=== PATIENT | female | born 2000 | race Two or more races ===

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

== ENCOUNTER 2018-03-16 19:29 | Emergency (ER) | payer OTHER ==
[2018-03-16] MEDS ORDERED: ACETAMINOPHEN 500 MG TAB PO ONE (20:56)
[2018-03-16] MEDS ORDERED: IBUPROFEN 200 MG TAB PO ONE (20:56)
--- NOTE | 2018-03-16 20:56 | EDPHY ---
H & P Stated Complaint: sore throat Time Seen by Provider: 03/16/18 19:48 HPI/ROS: Chief complaint: Cold symptoms History of present illness: This is a 17-year-old female who presents to the emergency department for cold symptoms. She reports runny nose, nasal congestion, sore throat and a slight nonproductive cough. Symptoms began a few days ago. No report of fever, no headache or neck pain, no trouble breathing, no body aches or rash. - Personal History LMP (Females 10-55): 8-14 Days Ago Current Tetanus Diphtheria and Acellular Pertussis (TDAP): Unsure - Medical/Surgical History Hx Asthma: No Hx Chronic Respiratory Disease: No Hx Diabetes: No Hx Cardiac Disease: No Hx Renal Disease: No Hx Cirrhosis: No Hx Alcoholism: No Hx HIV/AIDS: No Hx Splenectomy or Spleen Trauma: No Other PMH: Tonsillectomy, anemia - Social History Smoking Status: Never smoked - Physical Exam Exam: General Appearance: Alert, nontoxic. Eyes: Pupils equal and round no injection. ENT: Tympanic membranes, external auditory canals, external ears and surrounding soft tissue including over the mastoids are unremarkable. Nasopharynx is mildly injected. There is no rhinorrhea. Oropharynx is mildly injected. There is no edema. There is no exudate. There is no asymmetry. The uvula is midline. No elevation of the tongue. There is no hoarseness, no drooling, no trismus, no stridor. Respiratory: Chest is non tender, lungs are clear to auscultation. Cardiac: regular rate and rhythm Musculoskeletal: Neck is supple and non tender. Extremities have full range of motion and are non tender. Skin: No rashes or lesions. Neurologic: Alert and oriented x4. No meningismus. Constitutional: Initial Vital Signs Temperature (C) 36.8 C 03/16/18 19:39 Heart Rate 92 03/16/18 19:39 Respiratory Rate 20 03/16/18 19:39 Blood Pressure 104/62 03/16/18 19:39 O2 Sat (%) 95 03/16/18 19:39 O2 Delivery Mode Room Air Allergies/Adverse Reactions: No Known Allergies Allergy (Unverified 03/16/18 19:39) Home Medications: Medication Instructions Recorded Multivitamins 12/08/17 Medical Decision Making ED Course/Re-evaluation: Patient seen under the supervision of my secondary supervising physician Dr. Kiki Escobar. Patient presents for cold symptoms. She is nontoxic. Vital signs are stable. Strep swab is negative. I believe this is likely a viral URI. Antibiotics not indicated. Symptomatic care is discussed. She is to follow up with [facility] for recheck. Strict return precautions were given. The patient voiced understanding and agreement with plan. Differential Diagnosis: Included but not limited to pharyngitis, strep pharyngitis, sinusitis, bronchitis - Data Points Laboratory Results: 03/16/18 03/16/18 Unknown 19:45 Group A Strep Screen NEGATIVE (NEGATIVE) Group A Strep DNA Pending Medications Given: Discontinued Medications Acetaminophen (Tylenol) 500 mg PO EDNOW ONE Stop: 03/16/18 20:57 Last Admin: 03/16/18 21:04 Dose: 500 mg Ibuprofen (Motrin) 400 mg PO EDNOW ONE Stop: 03/16/18 20:57 Last Admin: 03/16/18 21:04 Dose: 400 mg Departure - Departure Disposition: Home, Routine, Self-Care Clinical Impression: URI (upper respiratory infection) Qualifiers: URI type: unspecified URI Qualified Code(s): J06.9 - Acute upper respiratory infection, unspecified Condition: Good Instructions: Upper Respiratory Infection (ED) Additional Instructions: Follow-up with a primary care doctor for continued evaluation and care I recommend use ibuprofen 400 mg every 6-8 hours for pain I also recommend use Flonase, 2 sprays in each nostril once daily Drink plenty of fluids to stay hydrated If symptoms worsen or new symptoms develop return to the emergency room for recheck Referrals: NONE *PRIMARY CARE P,. [Primary Care Provider] - As per Instructions [facility] [[facility]] - As per Instructions
[2018-03-17 00:12] VITALS: BP 115/77
== END 2018-03-16 21:05 | disposition home or self-care (01) ==
DX: J06.9 Acute upper respiratory infection, unspecified (principal)

== ENCOUNTER 2018-04-12 00:04 | Emergency (ER) | payer OTHER ==
--- NOTE | 2018-04-12 01:04 | EDPHY ---
H & P Stated Complaint: heart palpations for 2 days Time Seen by Provider: 04/12/18 00:37 HPI/ROS: Chief Complaint: Palpitations HPI: 17-year-old presenting with 2 days of intermittent palpitations. No fainting. No chest pain. No shortness of breath. No nausea or vomiting. She has not had similar episodes in the past. She is not sexually active. Last normal. Was 2 weeks ago. No abnormal bleeding. No family history of sudden cardiac . No dyspnea on exertion. ROS: 10 systems were reviewed and were negative except those elements noted in the HPI. PMH: Denies Social History: No smoking, no alcohol, no recreational drug use Family History: non-contributory Physical Exam: Gen: Awake, Alert, No Distress HEENT: Nose: no rhinorrhea Eyes: PERRLA, EOMI Mouth: Moist mucosa Neck: Supple, no JVD Chest: nontender, lungs clear to auscultation Heart: S1, S2 normal, no murmur Abd: Soft, non-tender, no guarding Back: no CVA tenderness, no midline tenderness Ext: no edema, non-tender Skin: no rash Neuro: CN II-XII intact, Sensation grossly intact, Strength 5/5 in bilateral upper and lower extremities - Personal History LMP (Females 10-55): 8-14 Days Ago Current Tetanus/Diphtheria Vaccine: No Current Tetanus Diphtheria and Acellular Pertussis (TDAP): No - Medical/Surgical History Hx Asthma: No Hx Chronic Respiratory Disease: No Hx Diabetes: No Hx Cardiac Disease: No Hx Renal Disease: No Hx Cirrhosis: No Hx Alcoholism: No Hx HIV/AIDS: No Hx Splenectomy or Spleen Trauma: No Other PMH: Tonsillectomy, anemia - Social History Smoking Status: Never smoked Constitutional: Initial Vital Signs Temperature (C) 36.6 C 04/12/18 00:13 Heart Rate 93 04/12/18 00:13 Respiratory Rate 16 04/12/18 00:13 Blood Pressure 122/68 H 04/12/18 00:13 O2 Sat (%) 98 04/12/18 00:13 O2 Delivery Mode Room Air Allergies/Adverse Reactions: No Known Allergies Allergy (Verified 04/12/18 00:16) Home Medications: Medication Instructions Recorded Multivitamins 12/08/17 Medical Decision Making - Diagnostics EKG Interpretation: ECG time 12:33 a.m., sinus rhythm with a rate of 93, normal axis, normal intervals, no acute ST or T-wave changes. Impression: Normal ECG. ED Course/Re-evaluation: Healthy 17-year-old female presenting with palpitations for the last 2 days. She has a completely normal ECG. No arrhythmia is noted. Vital signs are appropriate. She does not have any risk factors of arrhythmia, sudden cardiac . She has never been sexually active. No abnormal heavy bleeding. I have reassured her. Patient will be discharged with follow up with [facility] for any concerns. Departure - Departure Disposition: Home, Routine, Self-Care Clinical Impression: Palpitations Condition: Good Instructions: Heart Palpitations (ED) Additional Instructions: Follow up with student health in 2-3 days for further evaluation. Return to the emergency department for chest pain, fainting, shortness of breath , or any other concerns. Referrals: [facility] [Clinic] - As per Instructions Stand Alone Forms: School Excuse, Work Excuse
[2018-04-12 01:33] VITALS: BP 103/57
== END 2018-04-12 01:32 | disposition home or self-care (01) ==
DX: R00.2 Palpitations (principal)

== ENCOUNTER 2018-06-14 10:22 | Emergency (ER) | payer OTHER ==
--- NOTE | 2018-06-14 11:04 | EDPHY ---
General - History Smoking Status: Never smoked Time Seen by Provider: 06/14/18 10:34 Narrative: CLINICAL IMPRESSION: Constipation ASSESSMENT/PLAN: 17-year-old female presents to the emergency department with vague lower abdominal pain for the last 2-3 days associated with intermittent dysuria. She has no focal peritoneal findings on exam, vital signs are stable, no reported fever or chills, no nausea vomiting or diarrhea. She does not appear toxic, septic or in acute distress. X-rays confirm moderate stool burden with no evidence of SBO. Urine is not suggestive of UTI and patient is not . I discussed [id number] products for constipation and dietary modification. I do not feel this patient requires emergent CT or ultrasound imaging. Encouraged primary care recheck, warning signs return to ED sooner discussed discharge. DIFFERENTIAL DX: Abdominal pain includes but not limited to urinary tract infection, pyelonephritis, infection, ectopic , salpingitis, TOA, ovarian torsion, ovarian cyst, endometriosis, uterine fibroids, acute appendicitis, acute diverticulitis, small-bowel obstruction, constipation ED PROCEDURES: See lab and/or imaging results below ED COURSE: X-ray in urine findings discussed with patient. CHIEF COMPLAINT: Abdominal pain, constipation, dysuria HPI: 17-year-old female presents to the emergency department with complaints of 2-3 days of generalized lower abdominal pain, constipation, and dysuria. Patient reports no associated nausea, vomiting, fever, chills or diarrhea. She states the pain began after she ate something differently. She has not seen anyone for this. She took an [id number] stomach medication. Today she did not have dysuria. No reported discharge or concern for STDs or . She is mid cycle with no reported history of ovarian cysts. She has had a normal appetite PAST MEDICAL HISTORY: Past medical history of anemia See nurse/triage notes for additional history if applicable Pertinent Past Surgical History: Tonsillectomy Family History: Noncontributory Social History: Student at [employer] REVIEW OF SYSTEMS: All other systems negative Constitutional: No fever, no chills, denies appetite change. Cardiovascular: No chest pain, no palpitations. Respiratory: No cough, no shortness of breath. Gastrointestinal: Positive for lower abdominal pain, positive for constipation no vomiting, diarrhea. Genitourinary: No hematuria, positive for dysuria, denies flank pain, pelvic pain Musculoskeletal: No back pain, joint swelling, joint pain, myalgias. Skin: No rashes, color change. PHYSICAL EXAM: General Appearance: Alert, oriented, appropriate, cooperative, NAD, laying comfortably on the bed well hydrated, non-toxic appearing, VSS, no hypoxia. Respiratory: There are no retractions, lungs are clear to auscultation. Cardiac: Regular rate and rhythm, no murmurs or gallops. Gastrointestinal: Abdomen is soft, nontender, bowel sounds normal, no masses/ hernia, no rigidity, guarding or focal peritoneal findings. Neurological: [ Alert and oriented x 3 Skin: Warm, dry, no rashes, no nodules on palpation. MEDICAL DECISION MAKING: Patient was seen independently. Secondary supervising physician at time of evaluation was Dr. Madrigal . Diagnosis: Constipation. New, requires workup Summary: See Assessment and Plan for summary of ED visit Clinical lab tests: ordered / reviewed. Independent visualization of images, tracing, or specimens: Yes. Patient Progress: Stable for discharge. (Martín Martins) Medical Decision Making: I did not see this patient while she was in the emergency department. However her care was discussed with the PA while the patient was in the department. I agree with treatment plan and management (Ant Madrigal) - Objective Vital Signs: Initial Vital Signs Temperature (C) 36.7 C 06/14/18 10:25 Heart Rate 90 06/14/18 10:25 Respiratory Rate 16 06/14/18 10:25 Blood Pressure 111/78 06/14/18 10:25 O2 Sat (%) 96 05/09/19 10:25 O2 Delivery Mode Room Air Allergies/Adverse Reactions: No Known Allergies Allergy (Verified 06/14/18 10:25) Home Medications: Medication Instructions Recorded Multivitamins 12/08/17 Departure - Departure Disposition: Home, Routine, Self-Care Clinical Impression: Constipation Condition: Good Instructions: Constipation (ED) Additional Instructions: DISCHARGE INSTRUCTIONS FROM YOUR DOCTOR Thank you for visiting our emergency department today. You were treated by a physician assistant chief of police today and your case was reviewed with our ED Attending physician. Please keep in mind that discharge from the emergency department does not mean that there is nothing wrong - it simply means that we have not identified an emergency condition that requires further evaluation or treatment in the hospital. You should always plan to follow up with primary care for re- evaluation of your condition in the next 2-3 days. If you have been referred to a specialist, please call as soon as possible (today or tomorrow) to schedule your follow up appointment at the appropriate time. DIAGNOSTIC WORKUP IN THE EMERGENCY DEPARTMENT INCLUDED AN X-RAY AND URINE STUDIES. YOU DO NOT HAVE A BLADDER INFECTION. X-RAYS DO SHOW A MODERATE AMOUNT OF STOOL CONSISTENT WITH CONSTIPATION. NO EVIDENCE OF OBSTRUCTION. WE RECOMMEND USING EOAP-OHE-BNOEXAP PRODUCTS FOR CONSTIPATION AND DIETARY ADJUSTMENT. PLEASE ADD MORE FRUITS, VEGETABLES , FIBER, AND WATER TO HER DIET. YOU CAN TRY SENOKOT, MIRALAX, OR GLYCERIN SUPPOSITORIES TO HELP WITH CONSTIPATION. THESE CAN BE PURCHASED AT ANY LOCAL PHARMACY. PLEASE RETURN TO THE EMERGENCY DEPARTMENT FOR WORSENING OR SEVERE ABDOMINAL PAIN, FEVERS GREATER THAN 100.4, NAUSEA, VOMITING, DIARRHEA OR BLOODY STOOLS, ABNORMAL VAGINAL DISCHARGE, OR ANY OTHER CONCERNS. People present with illnesses and injuries in different ways, and it is always possible that we have missed something. You may always return for re-evaluation if symptoms worsen or if they are not improving or if you develop new/different symptoms. Again, thank you for choosing our emergency department. We hope that you feel better. Referrals: NONE *PRIMARY CARE P,. [Primary Care Provider] - As per Instructions [facility] [[facility]] - 2-3 days, call for appt.
[2018-06-14 11:48] VITALS: BP 115/80
== END 2018-06-14 11:48 | disposition home or self-care (01) ==
DX: K59.00 Constipation, unspecified (principal)